=== PATIENT | female | born 1960 ===

== ENCOUNTER 2017-08-25 09:18 | Day surgery (SDC) | payer SELFPAY ==
[2017-08-25 10:42] VITALS: BMI 28.9
[2017-08-25] MEDS ORDERED: Sodium Chloride 0.9% 1,000 ML IV ONE (10:48)
[2017-08-25] MEDS ORDERED: Propofol 10 mg/ml Inj (20 ML) ONE (12:47)
[2017-08-25 13:37] VITALS: BP 137/80; PULSE 66; RESP 22; TEMP 96.9; O2SAT 100
== END 2017-08-25 13:37 | disposition home or self-care (01) ==
LOC: H.ENDO 09:18
PROVIDERS: ATTEND Internal Medicine Gastroenterology
DX: Z12.11 Encounter for screening for malignant neoplasm of colon (principal); K64.0 First degree hemorrhoids
CPT/HCPCS: 45378; J2704; J7040